=== PATIENT | male | born 1995 | race African-American/Black ===

== ENCOUNTER 2019-01-25 13:19 | Emergency (ER) | payer BC ==
[~2019-01-25] VITALS: Ht 185.4 cm; Wt 113.4 kg
[2019-01-25 13:34] VITALS: BP_SYST 153
--- NOTE | 2019-01-25 13:59 | NUR ---
Patient to ER bed 02 to gown for evaluation. Side rails up.
--- NOTE | 2019-01-25 14:15 | NUR ---
Patient arrived via POV, AAOx4, and ambulatory with steady gait. Patient states he had breast reduction surgery in [place] on 01/15/19. Patient has sutures and pinrose drains. Patient has no signs and symptoms of infection. Minimal serosanguinous draining noted. Patient states no fever, chills, or body aches reported. Drain under left nipple is longer than on the right. Will continue to follow up and monitor.
--- NOTE | 2019-01-25 14:17 | NUR ---
NICO Márquez at bedside examining patient.
[2019-01-25 15:00] VITALS: BP_SYST 142
--- NOTE | 2019-01-25 15:00 | NUR ---
Patient given written and verbal discharge instructions and verbalizes understanding. ER MD discussed with patient the results and treatment provided. Patient in stable condition. ID arm band removed. No Rx given. Patient educated on pain management and to follow up with PMD. Pain Scale 2/10 tolerable for pt. Opportunity for questions provided and answered. Medication side effect fact sheet provided.
== END 2019-01-25 19:00 | disposition home or self-care (01) ==
LOC: SED 13:19
DX: Z13.89 Encounter for screening for other disorder (principal)
CPT/HCPCS: 99281